=== PATIENT | female | born 1985 | race Two or more races ===

== ENCOUNTER 2019-11-15 06:22 | Emergency (ER) | payer OTHER ==
[~2019-11-15] VITALS: Ht 152.4 cm; Wt 83.9 kg
[2019-11-15] MEDS ORDERED: PRENATAL + DHA1 EAC1 (06:27)
== END 2019-11-15 10:56 | disposition home or self-care (01) ==
LOC: ER 06:22
DX: O46.8X1 Other antepartum hemorrhage, first trimester (principal)